=== PATIENT | male | born 1985 | race Caucasian/White ===

== ENCOUNTER → 2016-12-29 | Outpatient (CLI) | payer BC ==
[~2016-12-29] MED LIST: CILOXAN5 ML OD
--- NOTE | ~2016-12-29 | MR165 ---
[facility] A Service of [facility] [place] RADIOLOGY TEXT RESULTS PATIENT: JAQUELIN HOLMAN LOCATION: [facility] : 81 UNIT #: [id number] AGE: [address]: DI LEE MD SEX: M ORDER DR: [id number] [address] [id number] O MR#: [id number] Acc #: [id number] NAME: JAQUELIN HOLMAN : 1985 SEX: M STUDY DATE/TIME: 12/29/2016 11:09 UNIT: [facility] ROOM: STUDY DESCRIPTION: MR Shoulder Wo Contrast Rt Attending Physician: Di Lee M.D. Referring Physician: Di Lee M.D. Ordering Physician: Physician Non-Staff Primary Care Physician: Reyes Kemp M.D. [facility] REPORT This report is preliminary unless electronic signature is present. EXAM Right shoulder MRI without contrast 12/29/2016 HISTORY 31-year-old male with right shoulder pain for 2 weeks. Limited range of motion. No prior right shoulder surgery. COMPARISON Right shoulder x-rays 12/21/2016 TECHNIQUE Routine unenhanced multiplanar multisequence high field MR imaging of the right shoulder was performed. FINDINGS There is mild supraspinatus tendinopathy with mild reactive enthesopathic marrow edema in the anterior aspect of the greater tuberosity. No evidence of tear. The infraspinatus, teres minor, and subscapularis tendons are intact. Long biceps tendon is intact well positioned in the bicipital groove. No evidence of a labral tear. Glenohumeral articular cartilage is intact. No glenohumeral joint effusion. Acromioclavicular joint is within normal limits. No subacromial spur. No significant inflammation, subacromial/subdeltoid bursa. Remainder of the bone marrow signal within expected limits. Visualized musculature is unremarkable. IMPRESSION [facility] A Service of [facility] [place] RADIOLOGY TEXT RESULTS PATIENT: JAQUELIN HOLMAN LOCATION: [facility] : 81 UNIT #: [id number] AGE: [address]: DI LEE MD SEX: M ORDER DR: 1. Mild supraspinatus tendinopathy with mild reactive enthesopathic marrow edema in the anterior aspect of the greater tuberosity. No evidence of a rotator cuff tear. 2. No significant labral pathology. 3. Remainder of the examination is unremarkable. Dictated by... Darron Oswald M.D. THIS IS AN ELECTRONICALLY VERIFIED REPORT Darron Oswald M.D. at 01/01/2017 1:15 PM KERI/fritz TD: 01/01/2017 12:13 JOB #: [id number] [facility] REPORT Page 1 of 1
== END | disposition home or self-care (01) ==
LOC: SMRI 10:21
DX: M25.511 Pain in right shoulder (principal); M75.81 Other shoulder lesions, right shoulder
CPT/HCPCS: 73221